=== PATIENT | female | born 1970 | race African-American/Black ===

== ENCOUNTER 2017-05-01 13:58 | Emergency (ER) | payer MEDICARE, MEDICAID ==
[2017-05-01 14:46] LABS: #Basophils 0.1 thou/uL (0.0-0.2); #Lymphocytes 1.4 thou/uL (1.20-3.40); #Monocytes 0.3 thou/uL (0.11-0.59); #Neutrophils 5.7 thou/uL (1.40-6.50); %Basophils 1.3 % (0.0-1.0); %Eosinophils 0.1 % (0.0-10.0); %Lymphocytes 18.5 % (21.0-51.0); %Monocytes 3.4 % (0.0-10.0); %Neutrophils 76.7 % (42.0-75.0); Hemoglobin 13.2 g/dL (12.0-16.0); Mean Corpuscular HGB CONC 32.9 g/dL (32.0-36.0); Mean Corpuscular Hemoglobin 29.4 pg (27.0-31.0); Mean Corpuscular Volume 89.5 fl (81.0-99.0); Mean Platelet Volume 7.5 fL (7.4-10.4); Platelet Count 310 thou/uL (130-400); RBC Distribution Width 11.7 % (11.5-14.5); Red Blood Cell (RBC) Count 4.49 mill/uL (4.20-5.40); White Blood Cell (WBC) Count 7.5 thou/uL (4.8-10.8)
[2017-05-01 15:08] LABS: Carbamazepine-Tegretol 9.7 ug/mL (4.0-12.0)
[2017-05-01 15:32] LABS: ALT (SGPT) 12 U/L (8-55); AST (SGOT) 29 U/L (5-34); Albumin 4.4 g/dL (3.5-5.0); Alkaline Phosphatase 75 U/L (40-150); Anion Gap 15 mmol/L (10-20); BUN (Urea Nitrogen) 8 mg/dL (7.0-18.7); Bilirubin, Total 0.3 mg/dL (0.2-1.2); Calc. Creatinine Clearance 0 mL/min (70-130); Carbon Dioxide 23 mmol/L (22-29); Chloride 106 mmol/L (98-107); Estimated GFR-MDRD 89; Globulin 5.2 g/dL (2.4-3.5); Glucose 106 mg/dL (70-105); Potassium 5.9 mmol/L (3.5-5.1); Protein, Total 9.6 g/dL (6.0-8.3); Sodium 138 mmol/L (136-145)
[2017-05-01 15:35] LABS: Bilirubin Negative (Negative); Blood, Urine Negative (Negative); Clarity CLEAR (Clear); Glucose, Urine (Dipstick) Negative (Negative); Leukocyte Negative (Negative); Nitrite Positive (Negative); Protein, Urine (Dipstick) Negative (Neg-Trace); Specific Gravity, Urine 1.004 (1.002-1.036)
[2017-05-01 15:36] LABS: Pregnancy Test - Urine (BHCG) Negative (Negative); Pregu Control Background? CLEAR/WHITE (CLR/WHITE); Pregu Control Bar Appear? YES (CONTROL BAR); Specific Gravity 1.004 (1.002-1.036)
[2017-05-01 15:37] LABS: Bacteria/HPF 3+ HPF (None Seen); Hyaline Casts/LPF 0-3 HYALINE CAST LPF (0-3 Hyaline); Squamous Epithelial 0-3 HPF (0-3); WBC/HPF 0-3 HPF (0-3)
[2017-05-01 15:46] LABS: Amphetamine Not Detected (NotDetected); Barbiturates Screen Not Detected (NotDetected); Benzodiazepine Screen Not Detected (NotDetected); Cocaine Metabolite Screen Not Detected (NotDetected); Medtox Control Line Valid? VALID (VALID); Medtox Reader # READER 1; Methadone Not Detected (NotDetected); Methamphetamine Not Detected (NotDetected); Opiate Screen Not Detected (NotDetected); Oxycodone Screen Not Detected (NotDetected); Phencyclidine (PCP) Not Detected (NotDetected); THC/Cannabinoid Screen Not Detected (NotDetected); Tricyclic Screen Not Detected (NotDetected)
[2017-05-01 15:47] LABS: RBC/HPF None Seen HPF (0-3)
== END 2017-05-01 18:17 | disposition home or self-care (01) ==
LOC: ERS 13:58
DX: N30.00 Acute cystitis without hematuria (principal); G40.909 Epilepsy, unspecified, not intractable, without status epilepticus; E87.5 Hyperkalemia; E78.5 Hyperlipidemia, unspecified; I10 Essential (primary) hypertension; Z79.899 Other long term (current) drug therapy
CPT/HCPCS: 80053; 80156; 80164; 80185; 80306; 81003; 81015; 81025; 84146; 85025; 96360; 96361; 99284

== ENCOUNTER 2017-05-10 16:45 | Emergency (ER) | payer MEDICARE, MEDICAID ==
--- NOTE | 2017-05-10 18:09 | ULT ---
LEFT LOWER EXTREMITY VENOUS DOPPLER WITH SPECTRAL ANALYSIS AND COLOR FLOW EVALUATION 05/10/17 HISTORY: Left lower extremity pain and edema. FINDINGS: Campbell scale, color flow, doppler evaluation, with spectral analysis of the left lower extremity venous structure is performed with 2D imaging. The left lower extremity common femoral, superficial femoral , popliteal, posterior tibial, most proximal visualized greater saphenous and profunda femoral veins are imaged. There is normal lumen compressibility, flow, and augmentation of the visualized deep david ous structures of the left lower extremity. There is an anechoic structure seen posterior to the knee in the popliteal fossa which measures 5.6 c m x 2.1 cm x 3.9 cm. Internal echogenic material is seen within this structure. Color flow evaluation demonstrates no flow. Findings are likely attributable to complicated Blevins's cyst. IMPRESSION: 1. Findings likely related to a complicated Blevins's cyst left popliteal fossa. Followup evaluati on in six weeks is recommended. 2. No evidence of a DVT involving the visualized deep venous structures left lower extremity. POS: JAMEL
== END 2017-05-10 18:16 | disposition home or self-care (01) ==
LOC: ERS 16:45
DX: M71.22 Synovial cyst of popliteal space [Baker], left knee (principal); E78.5 Hyperlipidemia, unspecified; I10 Essential (primary) hypertension; Z79.899 Other long term (current) drug therapy

== ENCOUNTER 2017-06-08 13:47 | Outpatient (CLI) | payer MEDICARE, MEDICAID ==
--- NOTE | 2017-06-08 15:51 | ULT ---
LEFT LOWER EXTREMITY VENOUS DUPLEX SONOGRAM: HISTORY: Left leg pain and edema. FINDINGS: The left common femoral vein and greater saphenous junction were evaluated along with the femoral, de ep femoral, popliteal, and posterior tibial veins. There is good color and spectral Doppler flow, co mpression, and augmentation. At the left popliteal fossa, a lobular fluid collection is 1.7 x 1.7 cm greatest diameters. IMPRESSION: 1. No sonographic evidence of deep vein thrombosis left lower extremity. 2. Small Blevins cyst left popliteal fossa. POS: JAMEL
== END 2017-06-08 13:48 | disposition home or self-care (01) ==
LOC: ULT 13:47
PROVIDERS: ATTEND Family Medicine
DX: R60.0 Localized edema (principal); M71.22 Synovial cyst of popliteal space [Baker], left knee

== ENCOUNTER 2017-06-09 13:14 | Outpatient (CLI) | payer MEDICARE, MEDICAID | END 2017-06-09 13:15 | disposition home or self-care (01) | LOC: EEG 13:14 | PROVIDERS: ATTEND Student in an Organized Health Care Education/Training Program | DX: G40.909 Epilepsy, unspecified, not intractable, without status epilepticus (principal) | CPT/HCPCS: 95822 ==

== ENCOUNTER 2018-06-14 12:11 | Emergency (ER) | payer MEDICARE, MEDICAID ==
[2018-06-14] MEDS ORDERED: Lorazepam 2 MG/ML VIAL ONE (12:40)
[2018-06-14] MEDS ORDERED: Fosphenytoin Sodium 1,500 MG in Sodium Chloride 0.9% 50 ML IVPB SCH (13:00)
[2018-06-14 14:17] LABS: #Basophils 0.1 thou/uL (0.0-0.2); #Monocytes 0.4 thou/uL (0.11-0.59); #Neutrophils 4.8 thou/uL (1.40-6.50); %Basophils 0.9 % (0.0-1.0); %Eosinophils 0.3 % (0.0-10.0); %Lymphocytes 27.9 % (21.0-51.0); %Neutrophils 64.9 % (42.0-75.0); Hemoglobin 13.1 g/dL (12.0-16.0); Mean Corpuscular Hemoglobin 28.6 pg (27.0-31.0); Mean Corpuscular Volume 89.6 fL (78.0-98.0); Mean Platelet Volume 7.5 fL (7.4-10.4); Platelet Count 254 thou/uL (130-400); RBC Distribution Width 11.6 % (11.5-14.5); Red Blood Cell (RBC) Count 4.57 mill/uL (4.20-5.40); White Blood Cell (WBC) Count 7.3 thou/uL (4.8-10.8)
[2018-06-14 14:37] LABS: Carbamazepine-Tegretol 8.7 ug/mL (4.0-12.0)
[2018-06-14 14:38] LABS: ALT (SGPT) 8 U/L (8-55); AST (SGOT) 13 U/L (5-34); Albumin 4.1 g/dL (3.5-5.0); Alkaline Phosphatase 63 U/L (40-150); Anion Gap 14 mmol/L (10-20); BUN (Urea Nitrogen) 10 mg/dL (7.0-18.7); Bilirubin, Total 0.3 mg/dL (0.2-1.2); Calc. Creatinine Clearance 0 mL/min (70-130); Calcium 9.8 mg/dL (7.8-10.44); Carbon Dioxide 24 mmol/L (22-29); Chloride 107 mmol/L (98-107); Estimated GFR-MDRD Greater than 90; Globulin 3.8 g/dL (2.4-3.5); Glucose 106 mg/dL (70-105); Potassium 3.9 mmol/L (3.5-5.1); Protein, Total 7.9 g/dL (6.0-8.3); Sodium 141 mmol/L (136-145)
== END 2018-06-14 15:00 | disposition home or self-care (01) ==
LOC: ERS 12:11
DX: G40.909 Epilepsy, unspecified, not intractable, without status epilepticus (principal); E78.5 Hyperlipidemia, unspecified; I10 Essential (primary) hypertension; Z79.899 Other long term (current) drug therapy
CPT/HCPCS: 36415; 80053; 80156; 85025; 96372; J2060; J7050; Q2009

== ENCOUNTER 2019-01-23 18:56 | Emergency (ER) | payer MEDICARE, MEDICAID ==
[2019-01-23 19:40] LABS: #Eosinphils 0.1 thou/uL (0.0-0.7); #Lymphocytes 2.1 thou/uL (1.20-3.40); #Monocytes 0.6 thou/uL (0.11-0.59); #Neutrophils 2.9 thou/uL (1.40-6.50); %Basophils 0.8 % (0.0-1.0); %Eosinophils 0.9 % (0.0-10.0); %Lymphocytes 36.8 % (21.0-51.0); %Neutrophils 51.5 % (42.0-75.0); Hemoglobin 12.7 g/dL (12.0-16.0); Mean Corpuscular HGB CONC 33.5 g/dL (32.0-36.0); Mean Corpuscular Hemoglobin 29.4 pg (27.0-31.0); Mean Corpuscular Volume 87.6 fL (78.0-98.0); Mean Platelet Volume 7.2 fL (7.4-10.4); Platelet Count 234 thou/uL (130-400); RBC Distribution Width 11.7 % (11.5-14.5); Red Blood Cell (RBC) Count 4.32 mill/uL (4.20-5.40); White Blood Cell (WBC) Count 5.6 thou/uL (4.8-10.8)
--- NOTE | 2019-01-23 19:41 | CT ---
CT HEAD NONCONTRAST: 01/23/19 HISTORY: Seizure. Headache. COMPARISON: 12/23/13. FINDINGS: There is no evidence of acute intracranial hemorrhage or infarct. Ventricles appear normal in size, s hape and position. Postoperative changes of each side of the calvarium and diffuse calvarial thickeni ng are stable. There is no mass effect or shift of midline structures. IMPRESSION: Chronic type findings are stable. No acute intracranial abnormalities are demonstrated. POS: BST
[2019-01-23 20:03] LABS: ALT (SGPT) 21 U/L (8-55); AST (SGOT) 27 U/L (5-34); Albumin 4.1 g/dL (3.5-5.0); Alkaline Phosphatase 74 U/L (40-110); Anion Gap 14 mmol/L (10-20); BUN (Urea Nitrogen) 10 mg/dL (7.0-18.7); Bilirubin, Total 0.3 mg/dL (0.2-1.2); Calc. Creatinine Clearance 0 mL/min (70-130); Calcium 9.2 mg/dL (7.8-10.44); Carbon Dioxide 20 mmol/L (22-29); Chloride 111 mmol/L (98-107); Estimated GFR-MDRD Greater than 90; Globulin 3.7 g/dL (2.4-3.5); Glucose 104 mg/dL (70-105); Protein, Total 7.8 g/dL (6.0-8.3); Sodium 141 mmol/L (136-145)
[2019-01-23 20:54] LABS: Bilirubin Negative (Negative); Blood, Urine Negative (Negative); Clarity Clear (Clear); Glucose, Urine (Dipstick) Normal (Negative); Leukocyte Negative Leu/uL (Negative); Nitrite Negative (Negative); Protein, Urine (Dipstick) Negative (Neg-Trace); Urobilinogen Normal mg/dL (Less than 2)
[2019-01-23 21:04] LABS: Amphetamine Not Detected (NotDetected); Barbiturates Screen Not Detected (NotDetected); Benzodiazepine Screen Not Detected (NotDetected); Cocaine Metabolite Screen Not Detected (NotDetected); Medtox Control Line Valid? VALID (VALID); Medtox Reader # READER 4; Methadone Not Detected (NotDetected); Methamphetamine Not Detected (NotDetected); Opiate Screen Not Detected (NotDetected); Oxycodone Screen Not Detected (NotDetected); Phencyclidine (PCP) Not Detected (NotDetected); THC/Cannabinoid Screen Not Detected (NotDetected); Tricyclic Screen Not Detected (NotDetected)
== END 2019-01-23 22:15 | disposition home or self-care (01) ==
LOC: ERS 18:56
DX: R56.9 Unspecified convulsions (principal); R07.89 Other chest pain; E78.5 Hyperlipidemia, unspecified; E78.00 Pure hypercholesterolemia, unspecified; Z79.899 Other long term (current) drug therapy
CPT/HCPCS: 36416; 70450; 80053; 80164; 80306; 81003; 84146; 84484; 85025; 93005

== ENCOUNTER 2019-02-10 21:00 | Emergency (ER) | payer MEDICARE, MEDICAID ==
[~2019-02-10 21:00] MED LIST: Iopamidol 370 76% 100 ML VIAL ONE
[2019-02-10 21:49] LABS: Mean Corpuscular HGB CONC 33.8 g/dL (32.0-36.0); Mean Corpuscular Hemoglobin 29.9 pg (27.0-31.0); Mean Corpuscular Volume 88.4 fL (78.0-98.0); Mean Platelet Volume 7.5 fL (7.4-10.4); Platelet Count 214 thou/uL (130-400); RBC Distribution Width 11.6 % (11.5-14.5); Red Blood Cell (RBC) Count 4.34 mill/uL (4.20-5.40); White Blood Cell (WBC) Count 5.4 thou/uL (4.8-10.8)
[2019-02-10 22:00] LABS: ALT (SGPT) 16 U/L (8-55); AST (SGOT) 17 U/L (5-34); Albumin 3.8 g/dL (3.5-5.0); Alkaline Phosphatase 76 U/L (40-110); Anion Gap 15 mmol/L (10-20); BUN (Urea Nitrogen) 11 mg/dL (7.0-18.7); Bilirubin, Total 0.2 mg/dL (0.2-1.2); Calc. Creatinine Clearance 0 mL/min (70-130); Calcium 8.5 mg/dL (7.8-10.44); Carbon Dioxide 20 mmol/L (22-29); Chloride 112 mmol/L (98-107); Estimated GFR-MDRD Greater than 90; Globulin 3.4 g/dL (2.4-3.5); Glucose 102 mg/dL (70-105); Potassium 3.5 mmol/L (3.5-5.1); Protein, Total 7.2 g/dL (6.0-8.3); Sodium 143 mmol/L (136-145)
[2019-02-10 22:01] LABS: Valproic Acid (Depakene) 80.1 ug/mL (50.0-100.0)
[2019-02-10 22:09] LABS: Eosinophils 1 % (0-10); Lymphocytes 54 % (21-51); MDiff Complete? YES; Monocytes 1 % (0-10); Neutrophil 44 % (42-75); Platelet Morphology Comment Appears Adequate; RBC Morphology Normal
--- NOTE | 2019-02-10 22:38 | CT ---
CTA CHEST WITH IV CONTRAST AND 3D POST PROCESSING: CTA ABDOMEN WITH IV CONTRAST AND 3D POST PROCESSING: History: Syncope, dizziness. FINDINGS: There is good contrast opacification of the thoracoabdominal aorta without evidence of aneurysm or di ssection. There is good flow in the celiac, SMA, THOMAS, and renal arteries. There is good opacification of the pulmonary artery vasculature without evidence of pulmonary embolism. No pericardial effusions are seen. No pneumothoraces, focal areas of consolidations or lung nodules/m asses are identified. There is a calcified granuloma in the right lung base. No free air or free fluid is seen in the abdomen. No lymphadenopathy is noted in the chest or abdomen . The liver, spleen, pancreas, adrenal glands and kidneys are unremarkable. No calcified gallstones are seen. There are mild degenerative changes in the spine. IMPRESSION: No CT evidence of thoracic aortic aneurysm/dissection or pulmonary embolism. POS: JAMEL
[2019-02-10 23:05] LABS: Bacteria/HPF 3+ HPF (None Seen); Bilirubin Negative (Negative); Blood, Urine Negative (Negative); Clarity Clear (Clear); Glucose, Urine (Dipstick) Normal (Negative); Leukocyte Negative Leu/uL (Negative); Nitrite 1+ (Negative); Protein, Urine (Dipstick) Negative (Neg-Trace); RBC/HPF 0-3 HPF (0-3); Squamous Epithelial 0-3 HPF (0-3); WBC/HPF 0-3 HPF (0-3)
== END 2019-02-10 23:46 | disposition home or self-care (01) ==
LOC: ERS 21:00
DX: R55 Syncope and collapse (principal); N39.0 Urinary tract infection, site not specified; E78.5 Hyperlipidemia, unspecified; E78.00 Pure hypercholesterolemia, unspecified; I10 Essential (primary) hypertension; Z79.899 Other long term (current) drug therapy
CPT/HCPCS: 36415; 71275; 72191; 74175; 80053; 80164; 80185; 81003; 81015; 82550; 83690; 84484; 85025; 93005; Q9967

== ENCOUNTER 2019-12-26 15:07 | Outpatient (CLI) | payer MEDICARE, MEDICAID ==
[2019-12-26 15:55] LABS: Estimated GFR-MDRD - POC Greater than 90
--- NOTE | 2019-12-26 18:09 | MRI ---
MRI BRAIN AND INTERNAL AUDITORY CANALS WITH AND WITHOUT CONTRAST: Date: 12/26/2019 HISTORY: 49-year-old female with H90.5 sensorineural hearing loss, asymmetrical. TECHNIQUE: Multiple sequences obtained in axial, sagittal, and coronal planes; both whole brain images and thin slices through the IAC's, pre and post IV injection of gadolinium-based contrast agent: 20 mL MultiHa nce. FINDINGS: There is severe magnetic susceptibility blowout artifact obscuring the upper portions of the bilatera l cerebral hemispheres, caused by ferromagnetic surgical clips in the biparietal old craniotomy defec ts. Therefore, the upper portion of the cerebrum cannot be evaluated. The ventricles are normal in size and configuration. There is no evidence of intraaxial signal abnorm ality or abnormal intraaxial enhancement, in the cerebral hemispheres at the level of the lateral david tricles, and caudal to that; or in the brainstem or cerebellum. The diffusion-weighted images are non diagnostic because of the severe blowout artifact. The clivus has normal signal. There is no abnormal enhancement, mass, or morphologic abnormality, involving the cerebellopontine an gles, 7th-8th nerve complexes, internal auditory canals, cochleae, vestibules, vestibular aqueducts, or semicircular canals. IMPRESSION: 1. The upper portion of the cerebrum is obscured by severe magnetic susceptibility artifact from indigo romagnetic surgical clips located at bilateral parietal old craniotomy defects. 2. No abnormality identified in the mid and lower portions of the cerebrum, or in the posterior helio a. 3. No abnormality of the inner ear structures identified. jn[] POS: ALEXANDRE
== END 2019-12-26 15:08 | disposition home or self-care (01) ==
LOC: BICMRI 15:07
PROVIDERS: ATTEND Student in an Organized Health Care Education/Training Program
DX: H90.5 Unspecified sensorineural hearing loss (principal); G93.89 Other specified disorders of brain
CPT/HCPCS: 70553; 82565

== ENCOUNTER 2020-06-01 16:19 | Emergency (ER) | payer MEDICAID ==
[2020-06-01 17:10] LABS: #Eosinphils 0.1 thou/uL (0.0-0.7); #Lymphocytes 3.1 thou/uL (1.20-3.40); #Monocytes 0.6 thou/uL (0.11-0.59); #Neutrophils 3.3 thou/uL (1.40-6.50); %Basophils 0.4 % (0.0-1.0); %Lymphocytes 43.6 % (21.0-51.0); %Monocytes 8.9 % (0.0-10.0); %Neutrophils 46.1 % (42.0-75.0); Hemoglobin 13.1 g/dL (12.0-16.0); Mean Corpuscular HGB CONC 33.9 g/dL (32.0-36.0); Mean Corpuscular Hemoglobin 30.9 pg (27.0-31.0); Mean Platelet Volume 7.3 fL (7.4-10.4); Platelet Count 229 thou/uL (130-400); RBC Distribution Width 12.6 % (11.5-14.5); Red Blood Cell (RBC) Count 4.26 mill/uL (4.20-5.40); White Blood Cell (WBC) Count 7.2 thou/uL (4.8-10.8)
[2020-06-01 18:12] LABS: ALT (SGPT) 35 U/L (8-55); AST (SGOT) 66 U/L (5-34); Albumin 3.8 g/dL (3.5-5.0); Alkaline Phosphatase 99 U/L (40-110); Anion Gap 18 mmol/L (10-20); BUN (Urea Nitrogen) 5 mg/dL (9.8-20.1); Bilirubin, Total 0.5 mg/dL (0.2-1.2); Calc. Creatinine Clearance 0 mL/min (70-130); Calcium 9.1 mg/dL (7.8-10.44); Carbon Dioxide 28 mmol/L (22-29); Chloride 96 mmol/L (98-107); Globulin 4.3 g/dL (2.4-3.5); Glucose 153 mg/dL (70-105); Protein, Total 8.1 g/dL (6.0-8.3); Sodium 139 mmol/L (136-145)
[2020-06-01 18:25] LABS: Potassium 2.5 mmol/L (3.5-5.1)
[2020-06-01] MEDS ORDERED: Potassium Chloride 20 MEQ TAB ONE (19:27)
== END 2020-06-01 19:35 | disposition home or self-care (01) ==
LOC: ERS 16:19
DX: E87.6 Hypokalemia (principal); E78.5 Hyperlipidemia, unspecified; E78.00 Pure hypercholesterolemia, unspecified; I10 Essential (primary) hypertension; Z79.899 Other long term (current) drug therapy; G40.909 Epilepsy, unspecified, not intractable, without status epilepticus
CPT/HCPCS: 36415; 80053; 80156; 80164; 84484; 85025; 93005

== ENCOUNTER 2022-02-08 13:25 | Outpatient (CLI) | payer OTHER, MEDICAID | END 2022-02-08 13:26 | disposition home or self-care (01) | LOC: BICMAMMO 13:25 | PROVIDERS: ATTEND Student in an Organized Health Care Education/Training Program | DX: Z12.31 Encounter for screening mammogram for malignant neoplasm of breast (principal) | CPT/HCPCS: 77063; 77067 ==

== ENCOUNTER 2022-08-01 19:03 | Emergency (ER) | payer OTHER ==
[2022-08-01] MEDS ORDERED: Boostrix 0.5 ML (Tdap) VIAL (>/=7 yrs of age) ONE (20:28)
== END 2022-08-01 21:06 | disposition home or self-care (01) ==
LOC: ERS 19:03
DX: S91.312A Laceration without foreign body, left foot, initial encounter (principal); E78.00 Pure hypercholesterolemia, unspecified; I10 Essential (primary) hypertension; W01.0XXA Fall on same level from slipping, tripping and stumbling without subsequent striking against object, initial encounter; Z79.899 Other long term (current) drug therapy
CPT/HCPCS: 90471; 90715

== ENCOUNTER 2022-09-28 11:32 | Outpatient (CLI) | payer OTHER | END 2022-09-28 11:33 | disposition home or self-care (01) | LOC: DTY/OP 11:32 | PROVIDERS: ATTEND Student in an Organized Health Care Education/Training Program | DX: E11.9 Type 2 diabetes mellitus without complications (principal) | CPT/HCPCS: 97802 ==

== ENCOUNTER 2022-11-18 07:42 | Outpatient (CLI) | payer OTHER | END 2022-11-18 07:43 | disposition home or self-care (01) | LOC: BICULT 07:42 | PROVIDERS: ATTEND Student in an Organized Health Care Education/Training Program | DX: R74.01 Elevation of levels of liver transaminase levels (principal); R93.2 Abnormal findings on diagnostic imaging of liver and biliary tract | CPT/HCPCS: 76705 ==

== ENCOUNTER 2022-12-25 10:52 | Emergency (ER) | payer OTHER ==
[2022-12-25] MEDS ORDERED: Ketorolac Tromethamine 30 MG/ML VIAL ONE ×2 (11:44→12:51)
[2022-12-25] MEDS ORDERED: Metoclopramide HCl 10 MG/2 ML VIAL ONE (11:44)
[2022-12-25] MEDS ORDERED: diphenhydrAMINE 50 MG/ML VIAL ONE (11:44)
[2022-12-25] MEDS ORDERED: Dexamethasone 10 MG/ML VIAL ONE ×2 (11:44→12:51)
[2022-12-25 12:27] LABS: ALT (SGPT) 22 U/L (8-55); AST (SGOT) 34 U/L (5-34); Albumin 4.1 g/dL (3.5-5.0); Alkaline Phosphatase 72 U/L (40-110); Anion Gap 16 mmol/L (10-20); BUN (Urea Nitrogen) 13 mg/dL (9.8-20.1); Bilirubin, Total 0.6 mg/dL (0.2-1.2); Calc. Creatinine Clearance 0 mL/min (70-130); Calcium 9.7 mg/dL (7.8-10.44); Carbon Dioxide 29 mmol/L (22-29); Chloride 99 mmol/L (98-107); Estimated GFR 81; Globulin 4.6 g/dL (2.4-3.5); Glucose 129 mg/dL (70-105); Lipase 58 U/L (8-78); Protein, Total 8.7 g/dL (6.0-8.3); Sodium 141 mmol/L (136-145)
[2022-12-25] MEDS ORDERED: Potassium Chloride 20 MEQ TAB ONE (12:51)
[2022-12-25] MEDS ORDERED: Metoclopramide HCl 10 MG TAB ONE (12:51)
[2022-12-25 12:59] LABS: #Monocytes 0.7 thou/uL (0.11-0.59); #Neutrophils 3.1 thou/uL (1.40-6.50); %Basophils 0.5 % (0.0-1.0); %Eosinophils 0.5 % (0.0-10.0); %Lymphocytes 38.4 % (21.0-51.0); %Monocytes 11.6 % (0.0-10.0); %Neutrophils 48.7 % (42.0-75.0); Hematocrit 43.9 % (36.0-47.0); Hemoglobin 14.5 g/dL (12.0-16.0); Mean Corpuscular Volume 90.9 fl (78.0-98.0); Mean Platelet Volume 9.7 fL (7.4-10.4); Platelet Count 205 10x3/uL (130-400); RBC Distribution Width 13.6 % (11.5-14.5); Red Blood Cell (RBC) Count 4.83 mill/uL (4.20-5.40); White Blood Cell (WBC) Count 6.3 10x3/uL (4.8-10.8)
[2022-12-25 13:49] LABS: Bacteria/HPF None Seen HPF (None Seen); Bilirubin Negative (Negative); Blood, Urine Negative (Negative); CAUTI Indications for Culture Alt mental st,lethar; Clarity Clear (Clear); Glucose, Urine (Dipstick) Greater than 1000 mg/dL (Negative); Ketone, Urine Negative (Negative); Leukocyte Negative Leu/uL (Negative); Nitrite Negative (Negative); Protein, Urine (Dipstick) Negative (Neg-Trace); RBC/HPF 0-3 HPF (0-3); Specific Gravity, Urine 1.017 (1.002-1.036); Squamous Epithelial None Seen HPF (0-3); WBC/HPF 0-3 HPF (0-3)
[2022-12-25 13:52] LABS: Urine Culture Reflex No No
== END 2022-12-25 13:42 | disposition home or self-care (01) ==
LOC: ERS 10:52
DX: R51.9 Headache, unspecified (principal); E78.00 Pure hypercholesterolemia, unspecified; I10 Essential (primary) hypertension; Z79.899 Other long term (current) drug therapy
CPT/HCPCS: 36415; 80053; 81001; 83690; 85025; 93005; 96372; J1100; J1200; J1885; J2765

== ENCOUNTER 2025-01-12 16:36 | Emergency (ER) | payer OTHER, MEDICAID ==
[2025-01-12 18:28] LABS: #Basophils 0.05 10x3/uL (0.0-0.2); #Eosinophils 0.16 10x3/uL (0.0-0.7); #Monocytes 0.57 10x3/uL (0.11-0.59); #Neutrophils 2.49 10x3/uL (1.40-6.50); %Basophils 0.8 % (0.0-1.0); %Eosinophils 2.4 % (0.0-10.0); %Lymphocytes 49.9 % (21.0-51.0); %Monocytes 8.7 % (0.0-10.0); %Neutrophils 37.9 % (42.0-75.0); Hematocrit 41.7 % (36.0-47.0); Hemoglobin 14.1 g/dL (12.0-16.0); Mean Corpuscular Hemoglobin 29.0 pg (27.0-31.0); Mean Corpuscular Volume 85.6 fL (78.0-98.0); Platelet Count 222 10x3/uL (130-400); Red Blood Cell (RBC) Count 4.87 mill/uL (4.20-5.40); White Blood Cell (WBC) Count 6.57 10x3/uL (4.8-10.8)
[2025-01-12 19:41] LABS: ALT (SGPT) 17 U/L (Less than 34); AST (SGOT) 29 U/L (11-34); Albumin 3.5 g/dL (3.1-4.5); Alkaline Phosphatase 54 U/L (40-110); Anion Gap 15 mmol/L (10-20); BUN (Urea Nitrogen) 11 mg/dL (9.8-20.1); Bilirubin, Total 0.4 mg/dL (0.3-1.2); Calc. Creatinine Clearance 0 mL/min (70-130); Calcium 9.4 mg/dL (7.8-10.44); Carbon Dioxide 25 mmol/L (22-29); Chloride 104 mmol/L (98-107); Globulin 4.0 g/dL (2.4-3.5); Glucose 87 mg/dL (70-105); Potassium 3.5 mmol/L (3.5-5.1); Sodium 140 mmol/L (136-145)
== END 2025-01-12 20:08 | disposition home or self-care (01) ==
LOC: ERS 16:36
DX: R45.89 Other symptoms and signs involving emotional state (principal); T42.6X5A Adverse effect of other antiepileptic and sedative-hypnotic drugs, initial encounter; S90.31XA Contusion of right foot, initial encounter; I10 Essential (primary) hypertension; Z79.899 Other long term (current) drug therapy; W20.8XXA Other cause of strike by thrown, projected or falling object, initial encounter
CPT/HCPCS: 36415; 80053; 80164; 85025; 93005; 99284

== ENCOUNTER 2025-01-17 08:34 | Outpatient (CLI) | payer OTHER | END 2025-01-17 08:35 | disposition home or self-care (01) | LOC: ULT 08:34 | PROVIDERS: ATTEND Family Medicine | DX: R10.11 Right upper quadrant pain (principal); R17 Unspecified jaundice; K76.0 Fatty (change of) liver, not elsewhere classified | CPT/HCPCS: 76705 ==